=== PATIENT | male | born 1985 | race Two or more races ===

== ENCOUNTER 2024-05-24 17:46 | Emergency (ER) | payer MEDICAID, OTHER ==
--- NOTE | 2024-05-24 18:07 | ED.PDOC ---
Musculoskeletal HPI Comments HPI: Poor Historian. 39-year-old male presents to emergency depart for evaluation of left shoulder pain status post pushing a car. Patient has decreased range of motion of the left upper extremity secondary to pain. Patient complains of left shoulder pain and sensation of swelling and numbness and tingling of the left shoulder region. Patient is neurovascularly intact in the affected extremity. Able to move all his digits and thumb oppose and good assembler molded frames muscle. Sensation and motor are present in the distal extremity. Radial pulses palpable. Past Medcial History: Past Surgical History: REVIEW OF SYSTEMS: CONSTITUTIONAL: Denies acute: fever, diaphoresis, chills, generalized weakness. HEAD: Denies acute: headache, photophobia Eyes: Denies acute: Double vision, vision loss, eye pain, eye discharge. EARS: Denies acute: tinnitus, hearing loss, ear discharge, ear pain, THROAT: Denies acute: sore throat, swelling, difficulty swallowing , pain with swallowing, change in voice. NECK: Denies acute: neck pain, neck swelling, stiff neck. HEART: Denies acute : chest pain, palpitations, LUNGS: Denies acute: SOB, wheezing, cough, hemoptysis ABDOMEN: Denies acute: abdominal pain, Nausea, Vomiting, diarrhea, melena , hematemesis, hematochezia SKIN: Denies acute: rash, redness, lesions, itchiness. EXTREMITIES: Denies acute: calf pain, numbness, tingling, weakness, Denies acute: Low back pain. Neuro: Denies acute: focal neurological deficit, motor or sensory focal neurological deficit, tremors, seizure like activity, confusion, dizziness, change in mental status, loss of bowel or bladder function, cauda equina like symptoms. : Denies acute: dysuria, hematuria, flank pain, increase in urinary frequency. PSYCH: Denies acute: hallucination, suicidal ideation, homicidal ideation. PHYSICAL EXAM: General: Moderate acute distress, awake and alert. Head: normocephalic, atraumatic. Neck: supple, trachea is midline, no swelling. Throat: Normal phonation. Eyes:, no erythema, no purulent discharge, no proptosis, no icterus. Heart: regular rate, regular rhythm, no significant murmur appreciated. Lungs: no apparent respiratory distress, Able to speak in full sentences. No wheezing, no rhonchi, no crackles. No stridors Clear to auscultation bilaterally. Abdomen: non tender to palpation, non distended, soft, no guarding, no rebound, + bowel sounds. Neuro: Awake, Alert, oriented to name, self, situation, follows commands GCS=15. Speech is normal. Skin: no petechia, no purpura, no cyanosis, non-pale, not jaundice. Lower extremities: --no - Pitting edema no deformity, no focal swelling, no calf TTP. Left upper extremity: Decreased range of motion secondary to pain. Patient was placed on a sling. Makes eye contact. moves all four extremities. Face: no apparent facial droop. Ambulating in the ED independently. Chief Complaint: Upper Extremity Time Seen by MD: 17:53 Reviewed Notes: Nurses Notes, Allergies Allergies: Uncoded Allergies: SEAFOOD (Allergy, Unknown, 05/24/24) SHELLFISH (Allergy, Unknown, 05/24/24) Information Source: Patient Mode of Arrival: Ambulatory Location: Left Was a procedure done? Was a procedure done?: Yes Sedation Sedation?: No Informed consent obtained: Yes Reduction Indication: Dislocation Post-reduction x-ray show: Reduction Informed consent obtained: Yes Risks/benefits/alt described: Yes Notes Patient was given fentanyl 100 mics IV for pain control. Closed reduction of a dislocated left shoulder was performed successfully. Patient was placed on a sling. Patient remained neurovascularly intact after the procedure. They did pulse and distal left upper extremity sensory and motor are present. Postreduction x-rays will be obtained. X-Ray, Labs, Meds, VS Vital Signs Date Time Temp Pulse Resp B/P (MAP) Pulse Ox O2 Delivery O2 Flow Rate FiO2 05/24/24 20:15 157/95 05/24/24 17:58 98.4 73 18 147/93 (111) 99 Lab Test 05/24/24 19:58 05/24/24 18:10 Range/Units Urine Opiates Screen Neg NEGATIVE Urine Fentanyl Screen Neg NEGATIVE Urine Barbiturates Screen Neg NEGATIVE Urine Phencyclidine Screen Neg NEGATIVE Urine Amphetamines Screen Neg NEGATIVE Urine Benzodiazepines Screen Neg NEGATIVE Urine Cocaine Screen Neg NEGATIVE Urine Cannabinoids Screen Pos NEGATIVE White Blood Count 8.8 4.4-10.8 10^3/uL Red Blood Count 4.65 4.5-5.90 10^6/uL Hemoglobin 15.3 13.5-17.5 g/dL Hematocrit 43.7 41.0-53.0 % Mean Corpuscular Volume 94.1 80.0-100.0 fL Mean Corpuscular Hemoglobin 32.9 H 28.0-32.0 pg Mean Corpuscular Hemoglobin Concent 35.0 32.0-36.0 g/dL Red Cell Distribution Width 13.3 11.8-14.3 % Platelet Count 214 140-450 10^3/uL Mean Platelet Volume 8.8 6.9-10.8 fL Neutrophils (%) (Auto) 69.5 37.0-80.0 % Lymphocytes (%) (Auto) 19.0 10.0-50.0 % Monocytes (%) (Auto) 8.3 0.0-12.0 % Eosinophils (%) (Auto) 2.5 0.0-7.0 % Basophils (%) (Auto) 0.7 0.0-2.0 % Neutrophils # (Auto) 6.1 1.6-8.6 10 ^3/uL Lymphocytes # (Auto) 1.7 0.4-5.4 10 ^3/uL Monocytes # (Auto) 0.7 0-1.3 10 ^3/uL Eosinophils # (Auto) 0.2 0-0.8 10 ^3/uL Basophils # (Auto) 0.1 0-0.2 10 ^3/uL Nucleated Red Blood Cells 0.1 % Sodium Level 141 136-145 mmol/L Potassium Level 3.9 3.5-5.1 mmol/L Chloride Level 107 98-107 mmol/L Carbon Dioxide Level 24 20-31 mmol/L Anion Gap 10 5-15 Blood Urea Nitrogen 16 9-23 mg/dL Creatinine 1.03 0.700-1.30 mg/dL Glomerular Filtration Rate Calc 96 >90 mL/min BUN/Creatinine Ratio 15.5 10.0-20.0 Serum Glucose 106 74-106 mg/dL Calcium Level 10.0 8.7-10.4 mg/dL Total Bilirubin 0.7 0.2-1.0 mg/dL Aspartate Amino Transferase (AST) 28 13-40 U/L Alanine Aminotransferase (ALT) 44 H 7-40 U/L Alkaline Phosphatase 52 46-116 U/L Creatine Kinase 264 H 46-171 U/L Total Protein 6.9 5.7-8.2 g/dL Albumin 4.8 3.2-4.8 g/dL Current Medications Medications (Trade) Dose Ordered Sig/Yoko Route Start Time Stop Time Status Last Admin Sodium Chloride 1,000 ml @ 1,000 mls/hr Q1H ONCE IV 05/24/24 19:15 05/24/24 20:14 DC 05/24/24 19:28 Fentanyl Citrate 100 mcg ONCE ONCE IV 05/24/24 19:15 05/24/24 19:16 DC 05/24/24 20:15 Departure 1 Departure Time of Disposition: 20:30 Impression: Primary Impression: Dislocation of left shoulder joint Disposition: HOME / SELF CARE / HOMELESS Condition: Stable Additional Instructions: Additional discharge instructions: You MUST follow-up with your primary care/family doctor in 1 to 2 days. If you are unable to see your primary care/family doctor, please return to our emergency room for re-assessment and re-evaluation in 1 to 2 days. Return to the emergency room here in our facility or to the nearest ER [facility] if your symptoms change or worsen. CONSULTATIONS: you MUST Follow-up for consultation as soon as possible with: -orthopedic surgery in 1-2 days. Please call for appointment. You MUST call the consultants office yourself to make an appointment. You may need to arrange that through your insurance and/or your primary/family doctor. If you are unable to see the sustainability consultant in 1 to 2 days, you must return to our emergency room (or any other ER of your choice) for re-assessment and re- evaluation. Adequate fluid hydration. Continue wearing a sling until cleared by Orthopedic doctor. Use over-the-co unter Tylenol ibuprofen for pain control as instructed. Below is a copy of your radiological report for follow up: [address] [address] Ph: [phone] DIAGNOSTIC IMAGING Diagnostic Imaging Report : [id number] Signed PATIENT: BASIA SHERIFF ACCT: [id number] UNIT: [id number] : 1985 LOC: ER ROOM / BED: / AGE / SEX: 39 / M ADM STATUS: REG ER SERVICE 31 ORDERING PHYSICIAN: MAGGI DUKES DO PROCEDURE(s): LSHD2 - L SHOULDER 2+ VIEW XRAY REASON: post reduction ORDER NUMBER(s): [id number], ACCESSION NUMBER(s): [id number] CLINICAL INDICATION: post reduction TECHNIQUE: 3 radiographic views of the left shoulder were obtained. Comparison: XY L SHOULDER 1V XRAY on DOS: 05/24/24 FINDINGS/IMPRESSION: Satisfactory postreduction film left shoulder. No acute fracture The visualized joint space is well maintained. The alignment is anatomical. There is no radiopaque foreign body. ATED BY: JOSE CRUZ FRANK Jr., DO DICTATED DATE/TIME: 05/24/242099 SIGNED BY: JOSE CRUZ FRANK Jr., SIGNED DATE/TIME: 05/24/242099 CC: Discharged With: MAGGI Mercedes DO May 24, 2024 18:07
--- NOTE | 2024-05-24 18:16 | DVH ---
CLINICAL INDICATION: pain TECHNIQUE: 1 radiographic views of the left shoulder were obtained. Comparison: None FINDINGS/IMPRESSION: Anterior dislocation of the left humerus is noted with no fractures visible. The visualized joint space is well maintained. The alignment is anatomical. There is no radiopaque foreign body.
[2024-05-24 18:35] LABS: Basophils # (auto) 0.1 10 ^3/uL (0-0.2); Basophils % (auto) 0.7 % (0.0-2.0); Eosinophils # (auto) 0.2 10 ^3/uL (0-0.8); Eosinophils % (auto) 2.5 % (0.0-7.0); Hematocrit 43.7 % (41.0-53.0); Hemoglobin 15.3 g/dL (13.5-17.5); Lymphocytes # (auto) 1.7 10 ^3/uL (0.4-5.4); Mean Corpuscular Hemoglobin 32.9 pg (28.0-32.0); Mean Corpuscular Volume 94.1 fL (80.0-100.0); Monocytes # (auto) 0.7 10 ^3/uL (0-1.3); Monocytes % (auto) 8.3 % (0.0-12.0); Neutrophils # (auto) 6.1 10 ^3/uL (1.6-8.6); Neutrophils % (auto) 69.5 % (37.0-80.0); Nucleated Red Blood Cells % 0.1 %; Platelet Count (auto) 214 10^3/uL (140-450); Red Blood Cells 4.65 10^6/uL (4.5-5.90); Red Cell Distribution Width 13.3 % (11.8-14.3); White Blood Cell 8.8 10^3/uL (4.4-10.8)
[2024-05-24 18:52] LABS: Alkaline Phosphatase 52 U/L (46-116); Anion Gap 10 (5-15); Aspartate Aminotransferase 28 U/L (13-40); BUN/Creatinine Ratio 15.5 (10.0-20.0); Bilirubin, Total 0.7 mg/dL (0.2-1.0); Blood Urea Nitrogen 16 mg/dL (9-23); Carbon Dioxide 24 mmol/L (20-31); Potassium 3.9 mmol/L (3.5-5.1); Sodium 141 mmol/L (136-145)
[2024-05-24 18:53] LABS: Total Protein 6.9 g/dL (5.7-8.2)
[2024-05-24 18:58] LABS: Alanine Aminotransferase 44 U/L (7-40); Albumin 4.8 g/dL (3.2-4.8); Chloride 107 mmol/L (98-107); Creatine Kinase IFCC 264 U/L (46-171); Glucose 106 mg/dL (74-106)
[2024-05-24 19:15] VITALS: TEMP 98.7
[2024-05-24] MEDS: SODIUM CHLORIDE 0.9% 1,000 ML IV ONE (19:28)
[2024-05-24 19:30] VITALS: PULSE 68; RESP 13; O2SAT 98
[2024-05-24] MEDS: fentaNYL CITRATE 100 MCG/2 ML VL IV ONE (20:15)
[2024-05-24 20:35] LABS: Amphetamine Screen, Urine Neg (NEGATIVE); Cannabinoid Screen, Urine Pos (NEGATIVE)
[2024-05-24 20:39] LABS: Barbiturate Scree,Urine Neg (NEGATIVE); Benzodiazephine Screen, Urine Neg (NEGATIVE); Cocaine Screen, Urine Neg (NEGATIVE); Opiate Scree,Urine Neg (NEGATIVE); Phencyclidine Screen, Urine Neg (NEGATIVE)
--- NOTE | 2024-05-24 21:03 | DVH ---
CLINICAL INDICATION: post reduction TECHNIQUE: 3 radiographic views of the left shoulder were obtained. Comparison: XY L SHOULDER 1V XRAY on DOS: 05/24/24 FINDINGS/IMPRESSION: Satisfactory postreduction film left shoulder. No acute fracture The visualized joint space is well maintained. The alignment is anatomical. There is no radiopaque foreign body.
[2024-05-24 22:21] VITALS: BP 127/82; PULSE 60; RESP 18; O2SAT 100
== END 2024-05-24 22:30 | disposition home or self-care (01) ==
LOC: ER 17:54
DX: S43.085A Other dislocation of left shoulder joint, initial encounter (principal); X50.9XXA Other and unspecified overexertion or strenuous movements or postures, initial encounter; Y93.89 Activity, other specified; Y92.89 Other specified places as the place of occurrence of the external cause; Y99.8 Other external cause status
CPT/HCPCS: 23650; 36415; 73020; 73030; 80053; 80307; 82550; 85025; 96360; 96361; 99285; J3010; J7030